=== PATIENT | male | born 2000 | race Caucasian/White ===

== ENCOUNTER 2021-12-23 13:51 | Emergency (ER) | payer OTHER ==
[2021-12-23 14:14] VITALS: BP 123/77; PULSE 91; RESP 18; TEMP 99
--- NOTE | 2021-12-23 15:31 | XR ---
EXAMINATION TYPE: XR foot complete RT DATE OF EXAM: 12/23/2021 COMPARISON: NONE HISTORY: 21-year-old male with injury TECHNIQUE: 3 views FINDINGS: Mild dorsal soft tissue swelling. Os intermetatarseum noted on the lateral view. No acute fracture, s ubluxation, or dislocation. IMPRESSION: Mild dorsal soft tissue swelling. No acute osseous abnormality seen.
--- NOTE | 2021-12-23 15:40 | ED ---
General Adult HPI - General Chief complaint: Extremity Injury, Lower Stated complaint: Rt foot injury Time Seen by Provider: 12/23/21 14:40 Source: patient, family, RN notes reviewed Mode of arrival: ambulatory Limitations: no limitations - History of Present Illness Initial comments: This a 21-year-old male presents emergency Department with chief complaint of right foot pain. Patient had injury days ago and watch he had grain auger fall onto his foot. Patient did have some mild swelling which resolved but then noticed some bruising. He still has mild discomfort but is able to ambulate no meds paresthesias. - Related Data Allergies Allergy/AdvReac Type Severity Reaction Status Date / Time No Known Allergies Allergy Verified 12/23/21 14:14 Review of Systems ROS Statement: Those systems with pertinent positive or pertinent negative responses have been documented in the HPI. ROS Other: All systems not noted in ROS Statement are negative. Past Medical History Past Medical History: No Reported History History of Any Multi-Drug Resistant Organisms: None Reported Past Surgical History: No Surgical Hx Reported Past Psychological History: ADD/ADHD Smoking Status: Never smoker Past Alcohol Use History: None Reported Past Drug Use History: None Reported General Exam Limitations: no limitations General appearance: alert, in no apparent distress Head exam: Present: atraumatic, normocephalic, normal inspection Eye exam: Present: normal appearance, PERRL, EOMI. Absent: scleral icterus, conjunctival injection, periorbital swelling Respiratory exam: Present: normal lung sounds bilaterally. Absent: respiratory distress, wheezes, rales, rhonchi, stridor Cardiovascular Exam: Present: regular rate, normal rhythm, normal heart sounds. Absent: systolic murmur, diastolic murmur, rubs, gallop, clicks Extremities exam: Present: other (Right foot there is ecchymosis over his second third and digit and distal metatarsal region there is mild tenderness neurovascular intact.) Course Vital Signs 12/23/21 14:08 Temperature 99 F Pulse Rate 91 Respiratory 18 Rate Blood Pressure 123/77 O2 Sat by Pulse 98 Oximetry Medical Decision Making - Medical Decision Making Patient's x-rays negative for acute fracture. Patient is right foot contusion, right foot crush injury is neurovascular intact will be discharged in stable condition. Disposition Clinical Impression: Contusion of right foot, Crush injury of right foot Disposition: HOME SELF-CARE Condition: Stable Instructions (If sedation given, give patient instructions): Foot Contusion (ED) Additional Instructions: Please return to the Emergency Department if symptoms worsen or any other concerns. Is patient prescribed a controlled substance at d/c from ED?: No Referrals: Zeke Brennan MD [Primary Care Provider] - 1-2 days Time of Disposition: 15:40
== END 2021-12-23 15:51 | disposition home or self-care (01) ==
LOC: EC 13:51
DX: S97.81XA Crushing injury of right foot, initial encounter (principal); S90.31XA Contusion of right foot, initial encounter; W23.0XXA Caught, crushed, jammed, or pinched between moving objects, initial encounter
CPT/HCPCS: 99283